=== PATIENT | female | born 1980 | race Caucasian/White ===

== ENCOUNTER 2019-02-09 14:18 | Emergency (ER) | payer MEDICARE, MEDICAID ==
--- NOTE | 2019-02-09 15:03 | EDM.PDOC ---
ED HPI GENERAL MEDICAL PROBLEM - General Chief Complaint: Syncope Stated Complaint: FACIAL INJURY Time Seen by Provider: 02/09/19 14:40 Source of Information: Reports: Patient, RN Notes Reviewed - History of Present Illness INITIAL COMMENTS - FREE TEXT/NARRATIVE: 39-year-old female suffered near syncopal event about an hour ago. She was putting some groceries away, did start to feel lightheaded and dizzy and a bit of a "warm fuzzy feeling". She states that she fell against the corner of her freezer suffering an abrasion, superficial puncture wound to her right for head. She does not believe that she did pass out completely. He states there was bleeding initially from the right for head wound and that is really her main concern to bring her here to the ED. The bleeding stopped after applying a cool compress. She has had no headache, nausea or vomiting. No neck chest or back discomfort. Not feel weak dizzy or lightheaded at this time. She has not been recently ill. Left Brow Pain Score (Numeric/FACES): 3 - Related Data Allergies Allergy/AdvReac Type Severity Reaction Status Date / Time No Known Allergies Allergy Verified 02/09/19 14:30 Home Meds: Home Meds Albuterol [Proair HFA] 2 puff INH ASDIRECTED PRN 02/18/15 [History] Budesonide/Formoterol [Symbicort 160-4.5 Mcg Inhaler] 2 puff IH BID 02/18/15 [ History] Montelukast Sodium [Singulair] 10 mg PO DAILY 02/18/15 [History] Past Medical History Respiratory History: Reports: Asthma Social & Family History - Tobacco Use Smoking Status *Q: Never Smoker - Recreational Drug Use Recreational Drug Use: No ED ROS GENERAL - Review of Systems Review Of Systems: See Below Constitutional: Denies: Fever, Chills, Diaphoresis HEENT: Reports: Other (Small abrasion on sure wound type injury right for head) . Denies: Ear Discharge Respiratory: Denies: Shortness of Breath Cardiovascular: Denies: Chest Pain GI/Abdominal: Denies: Abdominal Pain, Diarrhea, Nausea, Vomiting Musculoskeletal: Denies: Neck Pain, Shoulder Pain, Back Pain, Leg Pain Neurological: Reports: Dizziness. Denies: Headache (Gone), Numbness, Tingling, Trouble Speaking, Difficulty Walking, Weakness - Physical Exam Exam: See Below General Appearance: Alert, No Apparent Distress Eye Exam: Bilateral Eye: PERRL Ears: Normal External Exam Nose: Normal Inspection Throat/Mouth: Normal Inspection Head Exam: Other (Very small abrasion injury right for head, skin is not gaping , no active bleeding) Neck: Supple, Non-Tender Respiratory/Chest: No Respiratory Distress, Lungs Clear, Normal Breath Sounds Cardiovascular: Regular Rate, Rhythm Neuro Exam (Abbreviated): Alert, Oriented, No Motor/Sensory Deficits, Other ( [id number] testing normal) Extremities: Normal Inspection, Normal Range of Motion Skin Exam: Warm, Dry, Normal Color Course - Vital Signs Last Recorded V/S: Last Vital Signs Temp 98.0 F 02/09/19 14:32 Pulse 80 02/09/19 14:32 Resp 16 02/09/19 14:32 BP 133/98 H 02/09/19 14:32 Pulse Ox 99 02/09/19 14:32 - Re-Assessments/Exams Free Text/Narrative Re-Assessment/Exam: 02/09/19 15:05. Patient is resting comfortably, vitals are stable,normal cardiorespiratory and neuro exam. Good skin color, good capillary refill. I do not see that labs or further workup are going to be helpful at this time, patient is comfortable with that. discharge instructions as documented. Departure - Departure Time of Disposition: 14:57 Disposition: Home, Self-Care 01 Condition: Fair Clinical Impression: Near syncope Forehead abrasion Qualifiers: Encounter type: initial encounter Qualified Code(s): S00.81XA - Abrasion of other part of head, initial encounter - Discharge Information Referrals: Fani Tristan NP [Primary Care Provider] - Additional Instructions: Rest, drink plenty of water to maintain hydration, you have a weakness, dizzy spell like this again get sure head down as discussed and that will help keep you from passing out. Follow-up with your regular medical provider if you start having more dizzy episodes of this nature, return to ED as needed if symptoms worsening in any way. Apply some antibiotic ointment to the small abrasion wound of your right forehead 2-3 times daily for the next 3-4 days to help that heal up and not get infected.
[2019-02-09 15:41] VITALS: BP 140/98
== END 2019-02-09 15:40 | disposition home or self-care (01) ==
LOC: JD.ED 14:18
DX: S00.81XA Abrasion of other part of head, initial encounter (principal); R55 Syncope and collapse; J45.909 Unspecified asthma, uncomplicated; Z79.899 Other long term (current) drug therapy; W18.39XA Other fall on same level, initial encounter
CPT/HCPCS: 99281; 99283

== ENCOUNTER 2020-10-19 12:23 | Emergency (ER) | payer MEDICAID, MEDICARE ==
[2020-10-19 12:45] VITALS: BP 138/90; PULSE 79
[2020-10-19] MEDS ORDERED: Diphtheria,Pertussis(Acell),Tetanus Vaccine 0.5 ML Syringe IM ONE ×2 (12:55→13:01)
--- NOTE | 2020-10-19 13:00 | EDM.PDOC ---
ED HPI GENERAL MEDICAL PROBLEM - General Chief Complaint: Laceration Stated Complaint: LT HAND PALM LAC Time Seen by Provider: 10/19/20 12:50 Source of Information: Reports: Patient History Limitations: Reports: No Limitations - History of Present Illness INITIAL COMMENTS - FREE TEXT/NARRATIVE: 40-year-old female presents to the emergency department with complaints of a laceration to her left lateral palm. She states she is washing dishes just prior to arrival and cut her hand. She has an approximately 1 cm laceration noted to her left lateral palm. She did get the bleeding under control and applied "liquid stitches ". Patient states that it has been at least 8 years since her last tetanus shot. Onset: Today, Sudden Treatments [employer]: Reports: Dressing(s) - Related Data Allergies Allergy/AdvReac Type Severity Reaction Status Date / Time No Known Allergies Allergy Verified 10/19/20 12:32 Home Meds: Home Meds Albuterol [Proair HFA] 2 puff INH ASDIRECTED PRN 02/18/15 [History] Budesonide/Formoterol [Symbicort 160-4.5 Mcg Inhaler] 2 puff IH BID 02/18/15 [History] Montelukast Sodium [Singulair] 10 mg PO DAILY 02/18/15 [History] Past Medical History - Past Health History Medical/Surgical History: Denies Medical/Surgical History Respiratory History: Reports: Asthma Social & Family History - Family History Family Medical History: No Pertinent Family History - Tobacco Use Tobacco Use Status *Q: Never Tobacco User - Caffeine Use Caffeine Use: Reports: Coffee - Recreational Drug Use Recreational Drug Use: No ED ROS GENERAL - Review of Systems Review Of Systems: See Below Constitutional: Reports: No Symptoms HEENT: Reports: No Symptoms Respiratory: Reports: No Symptoms Cardiovascular: Reports: No Symptoms Endocrine: Reports: No Symptoms GI/Abdominal: Reports: No Symptoms : Reports: No Symptoms Musculoskeletal: Reports: No Symptoms Skin: Reports: Wound (Left lateral palm) Neurological: Reports: No Symptoms Psychiatric: Reports: No Symptoms Hematologic/Lymphatic: Reports: No Symptoms Immunologic: Reports: No Symptoms ED EXAM, SKIN/RASH Exam: See Below Exam Limited By: No Limitations General Appearance: Alert, WD/WN, No Apparent Distress Extremities: Normal Inspection, Normal Range of Motion, Non-Tender, No Pedal Edema, Normal Capillary Refill Skin: Warm, Dry, Normal Color, No Rash, Wound/Incision (Approximately 1 cm superficial laceration noted to left lateral palm. Patient applied "liquid stitches "prior to arrival. There is no bleeding noted and there is no sutures required at this time.) Location, Skin: Palms (Left lateral) Lymphatic: No Adenopathy Course - Vital Signs Text/Narrative:: 40-year-old female presents to the emergency department complaints of a laceration to her left lateral palm. Laceration is superficial and approximately 1 cm in length. Patient did get the bleeding under control and then placed "liquid stitches "over the laceration. Upon assessment laceration does appear to be superficial and bleeding is under control. At this time is or not warranted. We will however give the patient her tetanus booster. And then she will be discharged home. Last Recorded V/S: Last Vital Signs Temp 96.8 F L 10/19/20 12:35 Pulse 79 10/19/20 12:35 Resp 18 10/19/20 12:35 BP 138/90 10/19/20 12:35 Pulse Ox 96 10/19/20 12:35 - Orders/Labs/Meds Orders: Active Orders 24 hr Category Date Time Status Vaccines to be Administered [RC] PER UNIT ROUTINE Care 10/19/20 12:55 Ordered Diphth,Pertuss(Acell),Tet Vac [Adacel] Med 10/19/20 12:55 Once 0.5 ml IM .ONCE ONE Departure - Departure Time of Disposition: 13:03 Disposition: Home, Self-Care 01 Condition: Good Clinical Impression: Superficial laceration of left hand Qualifiers: Encounter type: initial encounter Qualified Code(s): S61.412A - Laceration without foreign body of left hand, initial encounter - Discharge Information Instructions: Wound Care, Adult, Laceration Care, Adult, [id number] Referrals: Fani Tristan NP [Primary Care Provider] - Additional Instructions: You were seen in the emergency department for a laceration to your left lateral palm. Laceration is superficial and there is no indication for stitches to be placed. Keep the area warm and dry wash twice daily with mild soap and water. Should you notice any increased redness, warmth or drainage, follow-up with your primary care physician or return to the emergency department. Sepsis Event Note (ED) - Evaluation Sepsis Screening Result: No Definite Risk - Focused Exam Vital Signs: Vital Signs Temp Pulse Resp BP Pulse Ox 10/19/20 12:35 96.8 F L 79 18 138/90 96 - My Orders Last 24 Hours: My Active Orders 10/19/20 12:55 Vaccines to be Administered [RC] PER UNIT ROUTINE Diphth,Pertuss(Acell),Tet Vac [Adacel] 0.5 ml IM .ONCE ONE - Assessment/Plan Last 24 Hours: My Active Orders 10/19/20 12:55 Vaccines to be Administered [RC] PER UNIT ROUTINE Diphth,Pertuss(Acell),Tet Vac [Adacel] 0.5 ml IM .ONCE ONE
== END 2020-10-19 13:15 | disposition home or self-care (01) ==
LOC: JD.ED 12:23
DX: S61.412A Laceration without foreign body of left hand, initial encounter (principal); J45.909 Unspecified asthma, uncomplicated; Z79.899 Other long term (current) drug therapy; Z23 Encounter for immunization; W26.8XXA Contact with other sharp object(s), not elsewhere classified, initial encounter
CPT/HCPCS: 12001; 90471; 90715; 99282; 99282-25

== ENCOUNTER 2023-08-31 15:07 | Emergency (ER) | payer MEDICARE ==
[2023-08-31] MEDS ORDERED: Albuterol/Ipratropium 3.0-0.5 MG/3 ML Neb Soln NEB ONE (15:32)
[2023-08-31] MEDS ORDERED: Triamcinolone Acetonide 40 MG/ML 1 ML SDV INJECT ONE (15:32)
[2023-08-31] MEDS ORDERED: Azithromycin 250 MG Tab PO ONE (17:49)
[2023-08-31 18:39] VITALS: BP 139/102; PULSE 85
== END 2023-08-31 18:19 | disposition home or self-care (01) ==
LOC: JD.ED 15:07
DX: J45.41 Moderate persistent asthma with (acute) exacerbation (principal); R91.8 Other nonspecific abnormal finding of lung field; Z79.899 Other long term (current) drug therapy
CPT/HCPCS: 71046; 71046-26; 94640; 96372; 99283; J3301; J7620-GY